=== PATIENT | female | born 1960 | race Caucasian/White ===

== ENCOUNTER 2016-11-29 11:45 | Emergency (ER) | payer SELFPAY ==
[2016-11-29] MEDS ORDERED: Sodium Chloride 0.9% 2.5 ML Syringe FLUSH PRN (12:03)
[2016-11-29] MEDS ORDERED: Sodium Chloride 0.9% 10 ML Syringe FLUSH PRN (12:03)
[2016-11-29] MEDS ORDERED: Ondansetron 4 MG/2 ML SDV IVPUSH ONE (12:04)
[2016-11-29] MEDS ORDERED: Sodium Chloride 0.9% 1,000 ML IV ONE (12:04)
[2016-11-29] MEDS ORDERED: HYDROmorphone 2 MG/ML Syringe IVPUSH ONE (12:04)
--- NOTE | 2016-11-29 12:10 | EDM.PDOC ---
ED HPI GENERAL MEDICAL PROBLEM - General Chief Complaint: Abdominal Pain Stated Complaint: APPENDICITIS Time Seen by Provider: 11/29/16 11:51 - History of Present Illness INITIAL COMMENTS - FREE TEXT/NARRATIVE: HISTORY AND PHYSICAL: History of present illness: The patient is a 56-year-old female with a history of a bilateral tubal ligation and diverticulitis in the past that presents with complaints of 3 weeks of on and off right lower abdominal pain. She states it has been ongoing but on and off in intensity and has been associated with watery stools that are dark in color. She has no history of GI problems other than the diverticulitis. She has no surgical history other than the tubal ligation. She has not had a fever with this and has had no nausea or vomiting. She has no flank pain dysuria frequency or urgency but does state that sometimes after urinating she does not feel that she completely avoids and she has to go again. She does not have a primary care provider and has not seen anyone for these symptoms over the last 3 weeks. She's concerned about appendicitis. Patient has not taken any [id number] medications for these problems. The patient states that the pain intensified last night which is why she came here it is again localized in the right lower abdominal area that is radiating throughout the abdomen now. She does not have any abdominal distention. She has no history of food intolerance and has been eating normally but has had less of an appetite because of the pain. The patient also denies any back pain Review of systems: As per history of present illness and below otherwise all systems reviewed and negative. Past medical history: As per history of present illness and as reviewed below otherwise noncontributory. Surgical history: As per history of present illness and as reviewed below otherwise noncontributory. Social history: No reported history of drug or alcohol abuse. Family history: As per history of present illness and as reviewed below otherwise noncontributory. Physical exam: General: Well-developed well-nourished female who looks uncomfortable in the room but is nontoxic vital signs of a noted by me. HEENT: Atraumatic, normocephalic, pupils reactive, negative for conjunctival pallor or scleral icterus, mucous membranes moist, throat clear, neck supple, nontender, trachea midline. Lungs: Clear to auscultation, breath sounds equal bilaterally, chest nontender. Heart: S1S2, regular, negative for clicks, rubs, or JVD. Abdomen: Soft, nondistended, there is no tympany on percussion and bowel sounds are very hyperactive. She has tenderness throughout the entire exam but is very mild on deep palpation and is more localized to the right lower abdomen area. There are no masses there is no rebound or guarding. Negative for masses or hepatosplenomegaly. Negative for costovertebral tenderness. Pelvis: Stable nontender. Genitourinary: Deferred. Rectal: There is normal tone and no masses, there is scant stool in the vault which is heme-negative. Extremities: Atraumatic, negative for cords or calf pain. Neurovascular unremarkable. Neuro: Awake, alert, oriented. Cranial nerves II through XII unremarkable. Cerebellum unremarkable. Motor and sensory unremarkable throughout. Exam nonfocal. Diagnostics: CBC CMP amylase lipase UA urine culture upright abdominal x-ray CT scan of the abdomen and pelvis Therapeutics: IV fluids Zofran Dilaudid She is aware of all testing results and has not produced any stool while in the ED. Advise her to followup in our clinic and will give her Bentyl for the discomfort I have advised Imodium over the counter use to help stop the diarrhea. I've also advised her on diet changes and hydration. She is also aware of reasons to return to the ED Impression: Episodic abdominal pain and diarrhea stable Definitive disposition and diagnosis as appropriate pending reevaluation and review of above. Right Lower Abdomen Pain Score (Numeric/FACES): 10 - Related Data Allergies Allergy/AdvReac Type Severity Reaction Status Date / Time No Known Allergies Allergy Verified 11/29/16 11:56 Home Meds: Home Meds . [No Known Home Meds] 11/29/16 [History] ED ROS GENERAL - Review of Systems Review Of Systems: ROS reveals no pertinent complaints other than HPI. ED EXAM, GENERAL - Physical Exam Exam: See Below (See dictation) Course - Vital Signs Last Recorded V/S: Last Vital Signs Temp 36.4 C 11/29/16 12:06 Pulse 96 11/29/16 12:06 Resp 18 11/29/16 12:06 BP 128/80 11/29/16 12:06 Pulse Ox 96 11/29/16 12:06 - Orders/Labs/Meds Orders: Active Orders 24 hr Category Date Time Status Communication Order [RC] STAT Care 11/29/16 12:06 Active Abdomen 1V Upright [CR] Stat Exams 11/29/16 12:03 Ordered CULTURE URINE [RM] Stat Lab 11/29/16 12:04 Received Sodium Chloride 0.9% [Saline Flush] Med 11/29/16 12:03 Active 10 ml FLUSH ASDIRECTED PRN Sodium Chloride 0.9% [Saline Flush] Med 11/29/16 12:03 Active 2.5 ml FLUSH ASDIRECTED PRN Saline Lock Insert [OM.PC] Stat Oth 11/29/16 12:03 Ordered Medication Orders Sodium Chloride (Saline Flush) 10 ml FLUSH ASDIRECTED PRN PRN Reason: Keep Vein Open Sodium Chloride (Saline Flush) 2.5 ml FLUSH ASDIRECTED PRN PRN Reason: Keep Vein Open Labs: Laboratory Tests 11/29/16 11/29/16 11/29/16 Range/Units 12:04 12:05 12:05 WBC 7.09 (4.0-11.0) K/uL RBC 4.65 (4.30-5.90) M/uL Hgb 15.0 (12.0-16.0) g/dL Hct 44.3 (36.0-46.0) % MCV 95.3 (80.0-98.0) fL MCH 32.3 H (27.0-32.0) pg MCHC 33.9 (31.0-37.0) g/dL RDW Std Deviation 43.5 (28.0-62.0) fl RDW Coeff of Asher 13 (11.0-15.0) % Plt Count 300 (150-400) K/uL MPV 9.60 (7.40-12.00) fL Neut % (Auto) 56.5 (48.0-80.0) % Lymph % (Auto) 35.8 (16.0-40.0) % [place] % (Auto) 6.6 (0.0-15.0) % Eos % (Auto) 0.8 (0.0-7.0) % Baso % (Auto) 0.3 (0.0-1.5) % Neut # (Auto) 4.0 (1.4-5.7) K/uL Lymph # (Auto) 2.5 H (0.6-2.4) K/uL [place] # (Auto) 0.5 (0.0-0.8) K/uL Eos # (Auto) 0.1 (0.0-0.7) K/uL Baso # (Auto) 0.0 (0.0-0.1) K/uL Nucleated RBC % 0.0 /100WBC Nucleated RBCs # 0 K/uL Lactate (0.20-2.00) mmol/L Sodium 140 (136-146) mmol/L Potassium 3.9 (3.5-5.1) mmol/L Chloride 108 (98-110) mmol/L Carbon Dioxide 20 L (21-31) mmol/L BUN 7 (6.0-23.0) mg/dL Creatinine 0.8 (0.6-1.5) mg/dL Est Cr Clr Drug Dosing 63.41 mL/min Estimated GFR (MDRD) > 60.0 ml/min Glucose 92 (60-110) mg/dL Calcium 9.6 (8.8-10.8) mg/dL Total Bilirubin 0.4 (0.1-1.5) mg/dL AST 22 (5-40) IU/L ALT 15 (8-54) IU/L Alkaline Phosphatase 43 (40-150) Total Protein 7.8 (6.0-8.0) g/dL Albumin 4.7 (3.5-5.0) g/dL Globulin 3.1 (2.0-3.5) g/dL Albumin/Globulin Ratio 1.5 (1.3-2.8) Amylase 58 (10-90) U/L Lipase 22 (7-80) U/L Urine Color YELLOW Urine Appearance CLEAR Urine pH 6.5 (5.0-8.0) Ur Specific [place] 1.010 (1.001-1.035) Urine Protein NEGATIVE (NEGATIVE) mg/dL Urine Glucose (UA) NEGATIVE (NEGATIVE) mg/dL Urine Ketones NEGATIVE (NEGATIVE) mg/dL Urine Occult Blood NEGATIVE (NEGATIVE) Urine Nitrite NEGATIVE (NEGATIVE) Urine Bilirubin NEGATIVE (NEGATIVE) Urine Urobilinogen 0.2 (<2.0) EU/dL Ur Leukocyte Esterase NEGATIVE (NEGATIVE) Urine RBC 0-1 (0-2/HPF) Urine WBC 0-1 (0-5/HPF) Ur Epithelial Cells FEW (NONE-FEW) Urine Bacteria RARE (NEGATIVE) 04/07/17 Range/Units 12:05 WBC (4.0-11.0) K/uL RBC (4.30-5.90) M/uL Hgb (12.0-16.0) g/dL Hct (36.0-46.0) % MCV (80.0-98.0) fL MCH (27.0-32.0) pg MCHC (31.0-37.0) g/dL RDW Std Deviation (28.0-62.0) fl RDW Coeff of Asher (11.0-15.0) % Plt Count (150-400) K/uL MPV (7.40-12.00) fL Neut % (Auto) (48.0-80.0) % Lymph % (Auto) (16.0-40.0) % [place] % (Auto) (0.0-15.0) % Eos % (Auto) (0.0-7.0) % Baso % (Auto) (0.0-1.5) % Neut # (Auto) (1.4-5.7) K/uL Lymph # (Auto) (0.6-2.4) K/uL [place] # (Auto) (0.0-0.8) K/uL Eos # (Auto) (0.0-0.7) K/uL Baso # (Auto) (0.0-0.1) K/uL Nucleated RBC % /100WBC Nucleated RBCs # K/uL Lactate 1.2 (0.20-2.00) mmol/L Sodium (136-146) mmol/L Potassium (3.5-5.1) mmol/L Chloride (98-110) mmol/L Carbon Dioxide (21-31) mmol/L BUN (6.0-23.0) mg/dL Creatinine (0.6-1.5) mg/dL Est Cr Clr Drug Dosing mL/min Estimated GFR (MDRD) ml/min Glucose (60-110) mg/dL Calcium (8.8-10.8) mg/dL Total Bilirubin (0.1-1.5) mg/dL AST (5-40) IU/L ALT (8-54) IU/L Alkaline Phosphatase (40-150) Total Protein (6.0-8.0) g/dL Albumin (3.5-5.0) g/dL Globulin (2.0-3.5) g/dL Albumin/Globulin Ratio (1.3-2.8) Amylase (10-90) U/L Lipase (7-80) U/L Urine Color Urine Appearance Urine pH (5.0-8.0) Ur Specific [place] (1.001-1.035) Urine Protein (NEGATIVE) mg/dL Urine Glucose (UA) (NEGATIVE) mg/dL Urine Ketones (NEGATIVE) mg/dL Urine Occult Blood (NEGATIVE) Urine Nitrite (NEGATIVE) Urine Bilirubin (NEGATIVE) Urine Urobilinogen (<2.0) EU/dL Ur Leukocyte Esterase (NEGATIVE) Urine RBC (0-2/HPF) Urine WBC (0-5/HPF) Ur Epithelial Cells (NONE-FEW) Urine Bacteria (NEGATIVE) Meds: Medications Generic Name Dose Route Start Last Admin Trade Name Freq PRN Reason Stop Dose Admin Sodium Chloride 10 ml 11/29/16 12:03 Saline Flush FLUSH ASDIRECTED PRN Keep Vein Open Sodium Chloride 2.5 ml 11/29/16 12:03 Saline Flush FLUSH ASDIRECTED PRN Keep Vein Open Discontinued Medications Generic Name Dose Route Start Last Admin Trade Name Freq PRN Reason Stop Dose Admin Hydromorphone HCl 0.5 mg 11/29/16 12:04 11/29/16 12:45 Dilaudid IVPUSH 11/29/16 12:05 0.5 mg ONETIME ONE Administration Sodium Chloride 1,000 mls @ 999 mls/hr 11/29/16 12:04 11/29/16 12:40 Normal Saline IV 11/29/16 13:04 999 mls/hr STAT ONE Administration Iopamidol 100 ml 11/29/16 13:44 11/29/16 13:45 Isovue-370 (76%) IVPUSH 11/29/16 13:45 100 ml ONETIME STA Administration Ondansetron HCl 4 mg 11/29/16 12:04 11/29/16 12:40 Zofran IVPUSH 11/29/16 12:05 4 mg ONETIME ONE Administration Departure - Departure Time of Disposition: 14:24 Disposition: Home, Self-Care 01 Condition: good Clinical Impression: Abdominal pain Qualifiers: Abdominal location: right lower quadrant Qualified Code(s): R10.31 - Right lower quadrant pain Diarrhea Qualifiers: Diarrhea type: unspecified type Qualified Code(s): R19.7 - Diarrhea, unspecified Forms: ED Department Discharge Additional Instructions: The following information is given to patients seen in the emergency department who are being discharged to home. This information is to outline your options for follow-up care. We provide all patients seen in our emergency department with a follow-up referral. The need for follow-up, as well as the timing and circumstances, are variable depending upon the specifics of your emergency department visit. If you don't have a primary care physician on staff, we will provide you with a referral. We always advise you to contact your personal physician following an emergency department visit to inform them of the circumstance of the visit and for follow-up with them and/or the need for any referrals to a consulting specialist. The emergency department will also refer you to a specialist when appropriate. This referral assures that you have the opportunity for followup care with a specialist. All of these measure are taken in an effort to provide you with optimal care, which includes your followup. Under all circumstances we always encourage you to contact your private physician who remains a resource for coordinating your care. When calling for followup care, please make the office aware that this follow-up is from your recent emergency room visit. If for any reason you are refused follow-up, please contact the [facility] emergency department at and ask to speak to the emergency department charge nurse. [facility] Primary care- Internal Medicine and Family [facility] [address] [place] [id number] [facility] Specialty Care-General Surgery Professional Building [address] [place] [id number] Please connect with our clinic for further care and evaluation and also schedule followup in neurosurgery clinic for colonoscopy as indicated. Please use [id number] Imodium to try to decrease the diarrhea and use Bentyl prescribed to you for her cramping and discomfort. Push hydration and avoid caffeinated products and eat bland diet. Return to ER as needed and as discussed - My Orders Last 24 Hours: My Active Orders 11/29/16 12:03 Abdomen 1V Upright [CR] Stat Sodium Chloride 0.9% [Saline Flush] 10 ml FLUSH ASDIRECTED PRN Sodium Chloride 0.9% [Saline Flush] 2.5 ml FLUSH ASDIRECTED PRN Saline Lock Insert [OM.PC] Stat 11/29/16 12:04 CULTURE URINE [RM] Stat 11/29/16 12:06 Communication Order [RC] STAT - Assessment/Plan Last 24 Hours: My Active Orders 11/29/16 12:03 Abdomen 1V Upright [CR] Stat Sodium Chloride 0.9% [Saline Flush] 10 ml FLUSH ASDIRECTED PRN Sodium Chloride 0.9% [Saline Flush] 2.5 ml FLUSH ASDIRECTED PRN Saline Lock Insert [OM.PC] Stat 11/29/16 12:04 CULTURE URINE [RM] Stat 11/29/16 12:06 Communication Order [RC] STAT
[2016-11-29 13:04] LABS: CHLORIDE,CL 108 mmol/L (98-110); SODIUM,NA 140 mmol/L (136-146)
[2016-11-29] MEDS ORDERED: Iopamidol 755 Mg/ML 100 ML Bottle IVPUSH STA (13:44)
--- NOTE | 2016-11-29 14:15 | CT ---
CT of the abdomen and pelvis with and without contrast. HISTORY: Pain TECHNIQUE: Axial CT images were obtained of the abdomen and pelvis before and following administrati on of 100 mL of Isovue-370 in the right hand without complication. Coronal and sagittal reconstructi ons obtained. FINDINGS: The lung bases are clear, no pleural effusion. There is mild focal fatty infiltration near the falciform ligament. The gallbladder, adrenal glands, and pancreas appear normal. The spleen is unremarkable. No bulky retroperitoneal lymphadenopathy or abdominal ascites. The kidneys enhance and function symmetrically without evidence of obstructive u ropathy. No abnormal calcifications noted within the kidneys or along the courses of the ureters kumar aterally. The large and small bowel are normal in caliber without evidence of obstruction. The appendix appear s normal. No bulky pelvic lymphadenopathy or free pelvic fluid. The urinary bladder appears normal. No suspicious osseous abnormality is identified. IMPRESSION: 1. No acute findings demonstrated within the abdomen or pelvis.
[2016-11-29 14:26] VITALS: BP 116/72
--- NOTE | 2016-11-29 15:00 | CR ---
EXAMINATION: Abdomen HISTORY: Pain COMPARISON: None TECHNIQUE: Upright view FINDINGS/IMPRESSION: The lung bases are clear, no free air under the diaphragm. There is a nonobstru ctive bowel gas pattern. No organomegaly or abnormal calcifications.
== END 2016-11-29 14:35 | disposition home or self-care (01) ==
LOC: MW.ED 11:45
DX: R19.7 Diarrhea, unspecified (principal); R10.31 Right lower quadrant pain
CPT/HCPCS: 74000; 74178; 80053; 81001; 82150; 83605; 83690; 85025; 87086; 96361; 96374; 96375; 99284; J1170; J2405; J7040; Q9967

== ENCOUNTER 2018-05-23 17:41 | Observation (INO) | payer MEDICAID ==
[2018-05-23] MEDS ORDERED: Sodium Chloride 0.9% 10 ML Syringe FLUSH PRN (19:19)
[2018-05-23] MEDS ORDERED: Acetaminophen 325 MG Tab PO ONE (19:19)
[2018-05-23] MEDS ORDERED: Sodium Chloride 0.9% 1,000 ML IV ONE (19:19)
[2018-05-23] MEDS ORDERED: Sodium Chloride 0.9% 2.5 ML Syringe FLUSH PRN (19:19)
--- NOTE | 2018-05-23 19:25 | EDM.PDOC ---
ED HPI GENERAL MEDICAL PROBLEM - General Chief Complaint: General Stated Complaint: HAS LOST 15LBS IN 5 DAYS AND HURTS ALL OVER Time Seen by Provider: 05/23/18 19:23 Source of Information: Reports: Patient History Limitations: Reports: No Limitations - History of Present Illness INITIAL COMMENTS - FREE TEXT/NARRATIVE: HISTORY AND PHYSICAL: History of present illness: Patient is a 57-year-old female here with complaints of feeling sick for 2 weeks. She states she's had fevers and chills as well as a cough. She complains of vomiting and diarrhea and has not been able to keep anything down which is resulted in the 15-20 pound weight loss. She denies any chest pain, shortness of breath, abdominal pain, hematemesis, melena, hematochezia. She is taking Advil for her symptoms. Patient smokes half a pack a day. Review of systems: As per history of present illness and below otherwise all systems reviewed and negative. Past medical history: As per history of present illness and as reviewed below otherwise noncontributory. Surgical history: As per history of present illness and as reviewed below otherwise noncontributory. Social history: No reported history of drug or alcohol abuse. Family history: As per history of present illness and as reviewed below otherwise noncontributory. Physical exam: General: Patient sitting comfortably in no acute distress and nontoxic appearing HEENT: Atraumatic, normocephalic, pupils reactive, negative for conjunctival pallor or scleral icterus, mucous membranes moist, throat clear, neck supple, nontender, trachea midline. No meningeal signs. Lungs: Rhonchi at the lung bases bilaterally, chest nontender. Heart: S1S2, regular, negative for clicks, rubs, or overt murmur. Abdomen: Soft, nondistended, nontender. Negative for masses or hepatosplenomegaly. Negative for costovertebral tenderness. Pelvis: Stable nontender. Genitourinary: Deferred. Rectal: Deferred. Extremities: Atraumatic, negative for cords or calf pain. Neurovascular unremarkable. Neuro: Awake, alert, oriented. Cranial nerves II through XII unremarkable. Cerebellum unremarkable. Motor and sensory unremarkable throughout. Exam nonfocal. Notes: Diagnostics: CXR, CBC, CMP, UA, Blood culture x 2 Therapeutics: 1L NS IV Levaquin IV Prescriptions: Impression: Pneumonia, leukocytosis Plan: Discussed with Dr. Shore, patient will be admitted to observation on IV antibiotics. Definitive disposition and diagnosis as appropriate pending reevaluation and review of above. Generalized Pain Score (Numeric/FACES): 10 - Related Data Allergies Allergy/AdvReac Type Severity Reaction Status Date / Time No Known Allergies Allergy Verified 05/23/18 19:01 Home Meds: Home Meds . [No Known Home Meds] 11/29/16 [History] Past Medical History HEENT History: Reports: Impaired Vision Other HEENT History: reading glasses Gastrointestinal History: Reports: Diverticulosis [employer] History: Reports: Other [employer] History: tubal ligation Neurological History: Reports: Concussion, Migraines, MS - Infectious Disease History Infectious Disease History: Reports: Chicken Pox Social & Family History - Family History Family Medical History: Noncontributory - Tobacco Use Smoking Status *Q: Current Every Day Smoker Years of Tobacco use: 20 Packs/Tins Daily: 0.5 - Caffeine Use Caffeine Use: Reports: Coffee, Soda - Recreational Drug Use Recreational Drug Use: No ED ROS GENERAL - Review of Systems Review Of Systems: ROS reveals no pertinent complaints other than HPI. ED EXAM, GENERAL - Physical Exam Exam: See Below (See dictation) Course - Vital Signs Last Recorded V/S: Last Vital Signs Temp 38.4 C H 05/23/18 18:55 Pulse 116 H 05/23/18 18:55 Resp 18 05/23/18 18:55 BP 105/63 05/23/18 18:55 Pulse Ox 94 L 05/23/18 18:55 - Orders/Labs/Meds Orders: Active Orders 24 hr Category Date Time Status Chest 1V Frontal [CR] Stat Exams 05/23/18 20:40 Taken CULTURE BLOOD [BC] Stat Lab 05/23/18 19:29 Received CULTURE BLOOD [BC] Stat Lab 05/23/18 19:38 Received CULTURE URINE [RM] Stat Lab 05/23/18 20:35 Received Sodium Chloride 0.9% [Saline Flush] Med 05/23/18 19:19 Active 10 ml FLUSH ASDIRECTED PRN Sodium Chloride 0.9% [Saline Flush] Med 05/23/18 19:19 Active 2.5 ml FLUSH ASDIRECTED PRN Blood Culture x2 Reflex Set [OM.PC] Stat Oth 05/23/18 19:19 Ordered Saline Lock Insert [OM.PC] Stat Oth 05/23/18 19:18 Ordered Medication Orders Sodium Chloride (Saline Flush) 10 ml FLUSH ASDIRECTED PRN PRN Reason: Keep Vein Open Last Admin: 05/23/18 19:37 Dose: 10 ml Sodium Chloride (Saline Flush) 2.5 ml FLUSH ASDIRECTED PRN PRN Reason: Keep Vein Open Last Admin: 05/23/18 19:37 Dose: 2.5 ml Labs: Laboratory Tests 05/23/18 05/23/18 05/23/18 Range/Units 19:: 20:35 WBC 16.14 H (4.0-11.0) K/uL RBC 4.08 L (4.30-5.90) M/uL Hgb 13.2 (12.0-16.0) g/dL Hct 38.2 (36.0-46.0) % MCV 93.6 (80.0-98.0) fL MCH 32.4 H (27.0-32.0) pg MCHC 34.6 (31.0-37.0) g/dL RDW Std Deviation 42.5 (28.0-62.0) fl RDW Coeff of Asher 13 (11.0-15.0) % Plt Count 300 (150-400) K/uL MPV 9.50 (7.40-12.00) fL Neut % (Auto) 85.8 H (48.0-80.0) % Lymph % (Auto) 6.6 L (16.0-40.0) % [place] % (Auto) 7.4 (0.0-15.0) % Eos % (Auto) 0.1 (0.0-7.0) % Baso % (Auto) 0.1 (0.0-1.5) % Neut # (Auto) 13.9 H (1.4-5.7) K/uL Lymph # (Auto) 1.1 (0.6-2.4) K/uL [place] # (Auto) 1.2 H (0.0-0.8) K/uL Eos # (Auto) 0.0 (0.0-0.7) K/uL Baso # (Auto) 0.0 (0.0-0.1) K/uL Nucleated RBC % 0.0 /100WBC Nucleated RBCs # 0 K/uL Sodium 131 L (136-145) mmol/L Potassium 3.7 (3.5-5.1) mmol/L Chloride 98 (98-107) mmol/L Carbon Dioxide 23.3 (21.0-32.0) mmol/L BUN 6 L (7.0-18.0) mg/dL Creatinine 0.8 (0.6-1.0) mg/dL Est Cr Clr Drug Dosing 62.63 mL/min Estimated GFR (MDRD) > 60.0 ml/min Glucose 118 H (74-106) mg/dL Calcium 8.8 (8.5-10.1) mg/dL Total Bilirubin 0.7 (0.2-1.0) mg/dL AST 48 H (15-37) IU/L ALT 39 (14-63) IU/L Alkaline Phosphatase 49 (46-116) U/L Total Protein 7.4 (6.4-8.2) g/dL Albumin 3.5 (3.4-5.0) g/dL Globulin 3.9 H (2.0-3.5) g/dL Albumin/Globulin Ratio 0.9 L (1.3-2.8) Urine Color DARK YELLOW Urine Appearance HAZY Urine pH 7.0 (5.0-8.0) Ur Specific [place] 1.010 (1.001-1.035) Urine Protein NEGATIVE (NEGATIVE) mg/dL Urine Glucose (UA) NEGATIVE (NEGATIVE) mg/dL Urine Ketones 15 H (NEGATIVE) mg/dL Urine Occult Blood NEGATIVE (NEGATIVE) Urine Nitrite NEGATIVE (NEGATIVE) Urine Bilirubin NEGATIVE (NEGATIVE) Urine Urobilinogen 1.0 (<2.0) EU/dL Ur Leukocyte Esterase NEGATIVE (NEGATIVE) Urine RBC 0-2 (0-2/HPF) Urine WBC 0-2 (0-5/HPF) Ur Epithelial Cells FEW (NONE-FEW) Urine Bacteria FEW (NEGATIVE) Meds: Medications Generic Name Dose Route Start Last Admin Trade Name Freq PRN Reason Stop Dose Admin Sodium Chloride 10 ml 05/23/18 19:19 05/23/18 19:37 Saline Flush FLUSH 10 ml ASDIRECTED PRN Administration Keep Vein Open Sodium Chloride 2.5 ml 05/23/18 19:19 05/23/18 19:37 Saline Flush FLUSH 2.5 ml ASDIRECTED PRN Administration Keep Vein Open Discontinued Medications Generic Name Dose Route Start Last Admin Trade Name William PRN Reason Stop Dose Admin Acetaminophen 650 mg 05/23/18 19:19 05/23/18 19:36 Tylenol PO 05/23/18 19:20 650 mg NOW ONE Administration Sodium Chloride 1,000 mls @ 999 mls/hr 05/23/18 19:19 05/23/18 19:36 Normal Saline IV 05/23/18 20:19 999 mls/hr STAT ONE Administration Departure - Departure Time of Disposition: 22:45 Disposition: Refer to Observation Condition: Good Clinical Impression: Pneumonia - Discharge Information Referrals: PCP,None [Primary Care Provider] - Forms: ED Department Discharge - My Orders Last 24 Hours: My Active Orders 05/23/18 19:18 Saline Lock Insert [OM.PC] Stat 05/23/18 19:19 Sodium Chloride 0.9% [Saline Flush] 10 ml FLUSH ASDIRECTED PRN Sodium Chloride 0.9% [Saline Flush] 2.5 ml FLUSH ASDIRECTED PRN Blood Culture x2 Reflex Set [OM.PC] Stat 05/23/18 19:29 CULTURE BLOOD [BC] Stat 05/23/18 19:38 CULTURE BLOOD [BC] Stat 05/23/18 20:35 CULTURE URINE [RM] Stat 05/23/18 20:40 Chest 1V Frontal [CR] Stat - Assessment/Plan Last 24 Hours: My Active Orders 05/23/18 19:18 Saline Lock Insert [OM.PC] Stat 05/23/18 19:19 Sodium Chloride 0.9% [Saline Flush] 10 ml FLUSH ASDIRECTED PRN Sodium Chloride 0.9% [Saline Flush] 2.5 ml FLUSH ASDIRECTED PRN Blood Culture x2 Reflex Set [OM.PC] Stat 05/23/18 19:29 CULTURE BLOOD [BC] Stat 05/23/18 19:38 CULTURE BLOOD [BC] Stat 05/23/18 20:35 CULTURE URINE [RM] Stat 05/23/18 20:40 Chest 1V Frontal [CR] Stat
[2018-05-23 20:05] LABS: CHLORIDE,CL 98 mmol/L (98-107); SODIUM,NA 131 mmol/L (136-145)
[2018-05-23] MEDS ORDERED: Levofloxacin/Dextrose 5%-Water 750 MG in Premix Bag 1 BAG IV ONE (22:44)
[2018-05-23] MEDS ORDERED: Ondansetron 4 MG Tab.DIS PO PRN (23:28)
[2018-05-23] MEDS ORDERED: Nicotine 14 MG/24 Hr Patch TRDERM ONE (23:45)
[2018-05-23] MEDS: Sodium Chloride 0.9% 1,000 ML IV SCH (23:46)
[2018-05-23] MEDS: Nicotine 14 MG/24 Hr Patch TRDERM SCH (23:46)
[2018-05-24] MEDS: Acetaminophen 325 MG Tab PO PRN ×2 (03:02→16:45)
[2018-05-24 06:31] LABS: CHLORIDE,CL 104 mmol/L (98-107); SODIUM,NA 135 mmol/L (136-145)
[2018-05-24] MEDS: Nicotine 14 MG/24 Hr Patch TRDERM SCH (09:39)
[2018-05-24] MEDS: Sodium Chloride 0.9% 1,000 ML IV SCH ×2 (09:41→22:40)
[2018-05-24] MEDS ORDERED: Magnesium Sulfate/Water 2 GM in Premix Bag 1 BAG IV ONE (10:26)
--- NOTE | 2018-05-24 10:57 | PCM.HP ---
<Matthew Buchananesto - Last Filed: 05/24/18 11:02> H&P History of Present Illness - General Date of Service: 05/24/18 Admit Problem/Dx: Admission Diagnosis/Problem Admission Diagnosis/Problem Pneumonia - History of Present Illness Initial Comments - Free Text/Narative: Annie Klein is a 58 y/o female with history of multiple sclerosis who presented to the ER complaining of nausea/vomiting for the past 2 weeks. She states that initially she started having flu like symptoms and since then she has been feeling nauseous, vomiting with poor oral intake. She lives in [place]. She has been here for 2 weeks since she came to visit her family in [place] from [place]. Denies any recent sick contacts. No one else is sick at home. Endorses pelvic pain. No diarrhea or dysuria. Denies any illicit drug use. Denies chest pain, dyspnea, dysuria, diarrhea. No new joint pain or rashes. Generalized Pain Score (Numeric/FACES): 10 - Related Data Allergies/Adverse Reactions: Allergies Allergy/AdvReac Type Severity Reaction Status Date / Time No Known Allergies Allergy Verified 05/23/18 19:01 Home Medications: Home Meds Cholecalciferol (Vitamin D3) [Vitamin D] 5,000 mg PO DAILY 05/24/18 [History] Vitamin B Complex 1 each PO DAILY 05/24/18 [History] Past Medical History HEENT History: Reports: Impaired Vision Other HEENT History: reading glasses Gastrointestinal History: Reports: Diverticulosis RN SUPPLEMENTAL History: Reports: Other OB/BYN History: tubal ligation Neurological History: Reports: Concussion, Migraines, MS - Infectious Disease History Infectious Disease History: Reports: Chicken Pox, Measles, Mumps, Rubella Social & Family History - Family History Family Medical History: Noncontributory - Tobacco Use Smoking Status *Q: Current Every Day Smoker Years of Tobacco use: 20 Packs/Tins Daily: 1 Used Tobacco, but Quit: No Tobacco Use Comment: Client wants to quit smoking Second Hand Smoke Exposure: Yes - Caffeine Use Caffeine Use: Reports: Coffee - Recreational Drug Use Recreational Drug Use: Yes Drug Use in Last 12 Months: Yes Recreational Drug Type: Reports: Other (see below) Other Recreational Drug Type: uses [employer] for her MS Recreational Drug Use Frequency: Daily H&P Review of Systems - Review of Systems: Review Of Systems: ROS reveals no pertinent complaints other than HPI. Exam - Exam Exam: See Below - Vital Signs Vital Signs: Last Vital Signs Temp 36.8 C 05/24/18 08:00 Pulse 92 05/24/18 08:00 Resp 18 05/24/18 08:00 BP 104/79 05/24/18 08:00 Pulse Ox 95 05/24/18 08:00 Weight: 57.969 kg - Exam General: Alert, Oriented, Cooperative HEENT: Conjunctiva Clear, Posterior Pharynx Clear, Pupils Equal, Pupils Reactive , Other (Dry mucous membranes.) Lungs: Clear to Auscultation, Normal Respiratory Effort Cardiovascular: Regular Rate, Regular Rhythm GI/Abdominal Exam: Soft, Non-Tender, Distended. No: Guarding, Rebound Extremities: Normal Inspection, Normal Range of Motion, Non-Tender, No Pedal Edema Skin: Warm, Dry Neurological: Cranial Nerves Intact Psychiatric: Alert, Normal Affect - Patient Data Lab Results Last 24 hrs: Laboratory Results - last 24 hr 05/23/18 05/23/18 05/23/18 Range/Units 19:29 19:29 20:35 WBC 16.14 H (4.0-11.0) K/uL RBC 4.08 L (4.30-5.90) M/uL Hgb 13.2 (12.0-16.0) g/dL Hct 38.2 (36.0-46.0) % MCV 93.6 (80.0-98.0) fL MCH 32.4 H (27.0-32.0) pg MCHC 34.6 (31.0-37.0) g/dL RDW Std Deviation 42.5 (28.0-62.0) fl RDW Coeff of Asher 13 (11.0-15.0) % Plt Count 300 (150-400) K/uL MPV 9.50 (7.40-12.00) fL Neut % (Auto) 85.8 H (48.0-80.0) % Lymph % (Auto) 6.6 L (16.0-40.0) % [place] % (Auto) 7.4 (0.0-15.0) % Eos % (Auto) 0.1 (0.0-7.0) % Baso % (Auto) 0.1 (0.0-1.5) % Neut # (Auto) 13.9 H (1.4-5.7) K/uL Lymph # (Auto) 1.1 (0.6-2.4) K/uL [place] # (Auto) 1.2 H (0.0-0.8) K/uL Eos # (Auto) 0.0 (0.0-0.7) K/uL Baso # (Auto) 0.0 (0.0-0.1) K/uL Nucleated RBC % 0.0 /100WBC Nucleated RBCs # 0 K/uL Sodium 131 L (136-145) mmol/L Potassium 3.7 (3.5-5.1) mmol/L Chloride 98 (98-107) mmol/L Carbon Dioxide 23.3 (21.0-32.0) mmol/L BUN 6 L (7.0-18.0) mg/dL Creatinine 0.8 (0.6-1.0) mg/dL Est Cr Clr Drug Dosing 62.63 mL/min Estimated GFR (MDRD) > 60.0 ml/min Glucose 118 H (74-106) mg/dL Calcium 8.8 (8.5-10.1) mg/dL Phosphorus (2.6-4.7) mg/dL Magnesium (1.8-2.4) mg/dL Total Bilirubin 0.7 (0.2-1.0) mg/dL AST 48 H (15-37) IU/L ALT 39 (14-63) IU/L Alkaline Phosphatase 49 (46-116) U/L Total Protein 7.4 (6.4-8.2) g/dL Albumin 3.5 (3.4-5.0) g/dL Globulin 3.9 H (2.0-3.5) g/dL Albumin/Globulin Ratio 0.9 L (1.3-2.8) Urine Color DARK YELLOW Urine Appearance HAZY Urine pH 7.0 (5.0-8.0) Ur Specific Wolf 1.010 (1.001-1.035) Urine Protein NEGATIVE (NEGATIVE) mg/dL Urine Glucose (UA) NEGATIVE (NEGATIVE) mg/dL Urine Ketones 15 H (NEGATIVE) mg/dL Urine Occult Blood NEGATIVE (NEGATIVE) Urine Nitrite NEGATIVE (NEGATIVE) Urine Bilirubin NEGATIVE (NEGATIVE) Urine Urobilinogen 1.0 (<2.0) EU/dL Ur Leukocyte Esterase NEGATIVE (NEGATIVE) Urine RBC 0-2 (0-2/HPF) Urine WBC 0-2 (0-5/HPF) Ur Epithelial Cells FEW (NONE-FEW) Urine Bacteria FEW (NEGATIVE) 05/24/18 05/24/18 Range/Units 05:38 05:38 WBC 15.68 H (4.0-11.0) K/uL RBC 3.52 L (4.30-5.90) M/uL Hgb 11.2 L (12.0-16.0) g/dL Hct 33.1 L (36.0-46.0) % MCV 94.0 (80.0-98.0) fL MCH 31.8 (27.0-32.0) pg MCHC 33.8 (31.0-37.0) g/dL RDW Std Deviation 42.9 (28.0-62.0) fl RDW Coeff of Asher 13 (11.0-15.0) % Plt Count 270 (150-400) K/uL MPV 9.50 (7.40-12.00) fL Neut % (Auto) 84.3 H (48.0-80.0) % Lymph % (Auto) 9.3 L (16.0-40.0) % [place] % (Auto) 6.3 (0.0-15.0) % Eos % (Auto) 0.0 (0.0-7.0) % Baso % (Auto) 0.1 (0.0-1.5) % Neut # (Auto) 13.2 H (1.4-5.7) K/uL Lymph # (Auto) 1.5 (0.6-2.4) K/uL [place] # (Auto) 1.0 H (0.0-0.8) K/uL Eos # (Auto) 0.0 (0.0-0.7) K/uL Baso # (Auto) 0.0 (0.0-0.1) K/uL Nucleated RBC % 0.0 /100WBC Nucleated RBCs # 0 K/uL Sodium 135 L (136-145) mmol/L Potassium 3.7 (3.5-5.1) mmol/L Chloride 104 (98-107) mmol/L Carbon Dioxide 23.1 (21.0-32.0) mmol/L BUN 5 L (7.0-18.0) mg/dL Creatinine 0.7 (0.6-1.0) mg/dL Est Cr Clr Drug Dosing 70.70 mL/min Estimated GFR (MDRD) > 60.0 ml/min Glucose 118 H (74-106) mg/dL Calcium 8.2 L (8.5-10.1) mg/dL Phosphorus 3.3 (2.6-4.7) mg/dL Magnesium 1.7 L (1.8-2.4) mg/dL Total Bilirubin 1.0 (0.2-1.0) mg/dL AST 63 H (15-37) IU/L ALT 54 (14-63) IU/L Alkaline Phosphatase 43 L (46-116) U/L Total Protein 6.2 L (6.4-8.2) g/dL Albumin 2.8 L (3.4-5.0) g/dL Globulin 3.4 (2.0-3.5) g/dL Albumin/Globulin Ratio 0.8 L (1.3-2.8) Urine Color Urine Appearance Urine pH (5.0-8.0) Ur Specific Wolf (1.001-1.035) Urine Protein (NEGATIVE) mg/dL Urine Glucose (UA) (NEGATIVE) mg/dL Urine Ketones (NEGATIVE) mg/dL Urine Occult Blood (NEGATIVE) Urine Nitrite (NEGATIVE) Urine Bilirubin (NEGATIVE) Urine Urobilinogen (<2.0) EU/dL Ur Leukocyte Esterase (NEGATIVE) Urine RBC (0-2/HPF) Urine WBC (0-5/HPF) Ur Epithelial Cells (NONE-FEW) Urine Bacteria (NEGATIVE) Result Diagrams: 05/24/18 05:38 05/24/18 05:38 Problem List Initiated/Reviewed/Updated: Yes Orders Last 24hrs: Active Orders 24 hr Category Date Time Status Admission Status [Patient Status] [ADT] Stat ADT 05/23/18 22:45 Active Regular Diet [DIET] Diet 05/24/18 Breakfast Active Chest 1V Frontal [CR] Stat Exams 05/23/18 20:40 Taken CULTURE BLOOD [BC] Stat Lab 05/23/18 19:29 Received CULTURE BLOOD [BC] Stat Lab 05/23/18 19:38 Received CULTURE URINE [RM] Stat Lab 05/23/18 20:35 Received DRUG SCREEN, URINE [URCHEM] Routine Lab 05/24/18 10:50 Ordered Acetaminophen [Tylenol] Med 05/23/18 23:27 Active 650 mg PO Q4H PRN Magnesium Sulfate/Water [Magnesium Sulfate 2 GM in Med 05/24/18 10:26 Active Water 50 ML] 2 gm Premix Bag 1 bag IV ONETIME Nicotine [Habitrol] Med 05/23/18 23:45 Active 14 mg TRDERM DAILY Ondansetron [Zofran ODT] Med 05/23/18 23:28 Active 4 mg PO Q6H PRN Sodium Chloride 0.9% [Normal Saline] 1,000 ml Med 05/23/18 23:30 Active IV ASDIRECTED Sodium Chloride 0.9% [Saline Flush] Med 05/23/18 19:19 Active 10 ml FLUSH ASDIRECTED PRN Sodium Chloride 0.9% [Saline Flush] Med 05/23/18 19:19 Active 2.5 ml FLUSH ASDIRECTED PRN Temazepam [Restoril] Med 05/24/18 21:00 Active 15 mg PO BEDTIME Blood Culture x2 Reflex Set [OM.PC] Stat Oth 05/23/18 19:19 Ordered Saline Lock Insert [OM.PC] Stat Oth 05/23/18 19:18 Ordered Medication Orders Acetaminophen (Tylenol) 650 mg PO Q4H PRN PRN Reason: Pain Last Admin: 05/24/18 03:02 Dose: 650 mg Sodium Chloride (Normal Saline) 1,000 mls @ 100 mls/hr IV ASDIRECTED [facility] Last Admin: 05/24/18 09:41 Dose: 100 mls/hr Infusion: 05/24/18 09:41 Dose: 100 mls/hr Admin: 05/23/18 23:46 Dose: 100 mls/hr Magnesium Sulfate 2 gm/ Premix 50 mls @ 25 mls/hr IV ONETIME ONE Stop: 05/24/18 12:25 Nicotine (Habitrol) 14 mg TRDERM DAILY [facility] Last Admin: 05/24/18 09:39 Dose: 14 mg Admin: 05/23/18 23:46 Dose: 14 mg Ondansetron HCl (Zofran Odt) 4 mg PO Q6H PRN PRN Reason: Nausea/Vomiting Last Admin: 05/24/18 03:02 Dose: 4 mg Sodium Chloride (Saline Flush) 10 ml FLUSH ASDIRECTED PRN PRN Reason: Keep Vein Open Last Admin: 05/23/18 19:37 Dose: 10 ml Sodium Chloride (Saline Flush) 2.5 ml FLUSH ASDIRECTED PRN PRN Reason: Keep Vein Open Last Admin: 05/23/18 19:37 Dose: 2.5 ml Temazepam (Restoril) 15 mg PO BEDTIME [facility] Assessment/Plan Comment:: 1. Nausea/vomiting- Uncertain etiology. Will order KUB. Ordered urine drug screen. Clear liquid diet. IV fluid with NS. Advance as tolerated. Zofran PRN. 2. Hypomagnesemia- replaced with Mg Sulfate IV 2g Once. 3. Leukocytosis- I suspect it may be due to dehydration. No fevers. Will continue to monitor. Dispo: 1-2 days <Jarek Shore - Last Filed: 05/24/18 16:03> H&P History of Present Illness - General Admit Problem/Dx: Admission Diagnosis/Problem Admission Diagnosis/Problem Pneumonia I have seen and examined the patient independently of nurses medical assistants phlebotomists. The patient is a 58-year-old lady who presented to the emergency room with a complaint of nausea vomiting and diarrhea over the past 2 weeks. Patient also says that she has been feeling very weak and fatigued. She feels somewhat dehydrated. The patient is visiting with daughter from [place]. The patient has a history of multiple sclerosis and she has been using CBD oil to help with this. The patient in the emergency department had been noted to have a hazy vague retrocardial opacity and she has been admitted for concern for pneumonia. The patient will be continued on the IV antibiotics. I suspect with resolution of the patient's symptoms as well as return of her white cell count to normal she should be appropriate for discharge. Also noted that the patient was hyponatremic and this is improved with fluid resuscitation. I have reviewed and agree with the resident's assessment and plan of care. Exam - Vital Signs Vital Signs: Last Vital Signs Temp 37.3 C 05/24/18 13:05 Pulse 100 05/24/18 13:05 Resp 18 05/24/18 13:05 BP 96/60 05/24/18 13:05 Pulse Ox 94 L 05/24/18 13:05 - Patient Data Lab Results Last 24 hrs: Laboratory Results - last 24 hr 05/23/18 05/23/18 05/23/18 Range/Units 19:29 19:29 20:35 WBC 16.14 H (4.0-11.0) K/uL RBC 4.08 L (4.30-5.90) M/uL Hgb 13.2 (12.0-16.0) g/dL Hct 38.2 (36.0-46.0) % MCV 93.6 (80.0-98.0) fL MCH 32.4 H (27.0-32.0) pg MCHC 34.6 (31.0-37.0) g/dL RDW Std Deviation 42.5 (28.0-62.0) fl RDW Coeff of Asher 13 (11.0-15.0) % Plt Count 300 (150-400) K/uL MPV 9.50 (7.40-12.00) fL Neut % (Auto) 85.8 H (48.0-80.0) % Lymph % (Auto) 6.6 L (16.0-40.0) % [place] % (Auto) 7.4 (0.0-15.0) % Eos % (Auto) 0.1 (0.0-7.0) % Baso % (Auto) 0.1 (0.0-1.5) % Neut # (Auto) 13.9 H (1.4-5.7) K/uL Lymph # (Auto) 1.1 (0.6-2.4) K/uL [place] # (Auto) 1.2 H (0.0-0.8) K/uL Eos # (Auto) 0.0 (0.0-0.7) K/uL Baso # (Auto) 0.0 (0.0-0.1) K/uL Nucleated RBC % 0.0 /100WBC Nucleated RBCs # 0 K/uL Sodium 131 L (136-145) mmol/L Potassium 3.7 (3.5-5.1) mmol/L Chloride 98 (98-107) mmol/L Carbon Dioxide 23.3 (21.0-32.0) mmol/L BUN 6 L (7.0-18.0) mg/dL Creatinine 0.8 (0.6-1.0) mg/dL Est Cr Clr Drug Dosing 62.63 mL/min Estimated GFR (MDRD) > 60.0 ml/min Glucose 118 H (74-106) mg/dL Calcium 8.8 (8.5-10.1) mg/dL Phosphorus (2.6-4.7) mg/dL Magnesium (1.8-2.4) mg/dL Total Bilirubin 0.7 (0.2-1.0) mg/dL AST 48 H (15-37) IU/L ALT 39 (14-63) IU/L Alkaline Phosphatase 49 (46-116) U/L Total Protein 7.4 (6.4-8.2) g/dL Albumin 3.5 (3.4-5.0) g/dL Globulin 3.9 H (2.0-3.5) g/dL Albumin/Globulin Ratio 0.9 L (1.3-2.8) Urine Color DARK YELLOW Urine Appearance HAZY Urine pH 7.0 (5.0-8.0) Ur Specific Wolf 1.010 (1.001-1.035) Urine Protein NEGATIVE (NEGATIVE) mg/dL Urine Glucose (UA) NEGATIVE (NEGATIVE) mg/dL Urine Ketones 15 H (NEGATIVE) mg/dL Urine Occult Blood NEGATIVE (NEGATIVE) Urine Nitrite NEGATIVE (NEGATIVE) Urine Bilirubin NEGATIVE (NEGATIVE) Urine Urobilinogen 1.0 (<2.0) EU/dL Ur Leukocyte Esterase NEGATIVE (NEGATIVE) Urine RBC 0-2 (0-2/HPF) Urine WBC 0-2 (0-5/HPF) Ur Epithelial Cells FEW (NONE-FEW) Urine Bacteria FEW (NEGATIVE) Urine Opiates Screen (NEGATIVE) Ur Oxycodone Screen (NEGATIVE) Urine Methadone Screen (NEGATIVE) Ur Barbiturates Screen (NEGATIVE) Ur Phencyclidine Scrn (NEGATIVE) Ur Amphetamine Screen (NEGATIVE) U Methamphetamines Scrn (NEGATIVE) U Benzodiazepines Scrn (NEGATIVE) U Cocaine Metab Screen (NEGATIVE) U Marijuana (THC) Screen (NEGATIVE) 05/24/18 05/24/18 05/24/18 Range/Units 05:38 05:38 11:45 WBC 15.68 H (4.0-11.0) K/uL RBC 3.52 L (4.30-5.90) M/uL Hgb 11.2 L (12.0-16.0) g/dL Hct 33.1 L (36.0-46.0) % MCV 94.0 (80.0-98.0) fL MCH 31.8 (27.0-32.0) pg MCHC 33.8 (31.0-37.0) g/dL RDW Std Deviation 42.9 (28.0-62.0) fl RDW Coeff of Asher 13 (11.0-15.0) % Plt Count 270 (150-400) K/uL MPV 9.50 (7.40-12.00) fL Neut % (Auto) 84.3 H (48.0-80.0) % Lymph % (Auto) 9.3 L (16.0-40.0) % [place] % (Auto) 6.3 (0.0-15.0) % Eos % (Auto) 0.0 (0.0-7.0) % Baso % (Auto) 0.1 (0.0-1.5) % Neut # (Auto) 13.2 H (1.4-5.7) K/uL Lymph # (Auto) 1.5 (0.6-2.4) K/uL [place] # (Auto) 1.0 H (0.0-0.8) K/uL Eos # (Auto) 0.0 (0.0-0.7) K/uL Baso # (Auto) 0.0 (0.0-0.1) K/uL Nucleated RBC % 0.0 /100WBC Nucleated RBCs # 0 K/uL Sodium 135 L (136-145) mmol/L Potassium 3.7 (3.5-5.1) mmol/L Chloride 104 (98-107) mmol/L Carbon Dioxide 23.1 (21.0-32.0) mmol/L BUN 5 L (7.0-18.0) mg/dL Creatinine 0.7 (0.6-1.0) mg/dL Est Cr Clr Drug Dosing 70.70 mL/min Estimated GFR (MDRD) > 60.0 ml/min Glucose 118 H (74-106) mg/dL Calcium 8.2 L (8.5-10.1) mg/dL Phosphorus 3.3 (2.6-4.7) mg/dL Magnesium 1.7 L (1.8-2.4) mg/dL Total Bilirubin 1.0 (0.2-1.0) mg/dL AST 63 H (15-37) IU/L ALT 54 (14-63) IU/L Alkaline Phosphatase 43 L (46-116) U/L Total Protein 6.2 L (6.4-8.2) g/dL Albumin 2.8 L (3.4-5.0) g/dL Globulin 3.4 (2.0-3.5) g/dL Albumin/Globulin Ratio 0.8 L (1.3-2.8) Urine Color Urine Appearance Urine pH (5.0-8.0) Ur Specific Wolf (1.001-1.035) Urine Protein (NEGATIVE) mg/dL Urine Glucose (UA) (NEGATIVE) mg/dL Urine Ketones (NEGATIVE) mg/dL Urine Occult Blood (NEGATIVE) Urine Nitrite (NEGATIVE) Urine Bilirubin (NEGATIVE) Urine Urobilinogen (<2.0) EU/dL Ur Leukocyte Esterase (NEGATIVE) Urine RBC (0-2/HPF) Urine WBC (0-5/HPF) Ur Epithelial Cells (NONE-FEW) Urine Bacteria (NEGATIVE) Urine Opiates Screen NEGATIVE (NEGATIVE) Ur Oxycodone Screen NEGATIVE (NEGATIVE) Urine Methadone Screen NEGATIVE (NEGATIVE) Ur Barbiturates Screen NEGATIVE (NEGATIVE) Ur Phencyclidine Scrn NEGATIVE (NEGATIVE) Ur Amphetamine Screen NEGATIVE (NEGATIVE) U Methamphetamines Scrn NEGATIVE (NEGATIVE) U Benzodiazepines Scrn NEGATIVE (NEGATIVE) U Cocaine Metab Screen NEGATIVE (NEGATIVE) U Marijuana (THC) Screen POSITIVE (NEGATIVE) Result Diagrams: 05/24/18 05:38 05/24/18 05:38 Orders Last 24hrs: Active Orders 24 hr Category Date Time Status Admission Status [Patient Status] [ADT] Stat ADT 05/23/18 22:45 Active Regular Diet [DIET] Diet 05/24/18 Breakfast Active Chest 1V Frontal [CR] Stat Exams 05/23/18 20:40 Taken Chest 2V [CR] Routine Exams 05/24/18 13:20 Ordered KUB [Abdomen 1V Flat] [CR] Routine Exams 05/24/18 11:11 Ordered CBC WITH AUTO DIFF [HEME] AM Lab 05/25/18 05:11 Ordered COMPREHENSIVE METABOLIC PN,CMP [CHEM] AM Lab 05/25/18 05:11 Ordered CULTURE BLOOD [BC] Stat Lab 05/23/18 19:29 Received CULTURE BLOOD [BC] Stat Lab 05/23/18 19:38 Received CULTURE URINE [RM] Stat Lab 05/23/18 20:35 Received MAGNESIUM [CHEM] AM Lab 05/25/18 05:11 Ordered Acetaminophen [Tylenol] Med 05/23/18 23:27 Active 650 mg PO Q4H PRN Nicotine [Habitrol] Med 05/23/18 23:45 Active 14 mg TRDERM DAILY Ondansetron [Zofran ODT] Med 05/23/18 23:28 Active 4 mg PO Q6H PRN Sodium Chloride 0.9% [Normal Saline] 1,000 ml Med 05/23/18 23:30 Active IV ASDIRECTED Sodium Chloride 0.9% [Saline Flush] Med 05/23/18 19:19 Active 10 ml FLUSH ASDIRECTED PRN Sodium Chloride 0.9% [Saline Flush] Med 05/23/18 19:19 Active 2.5 ml FLUSH ASDIRECTED PRN Temazepam [Restoril] Med 05/24/18 21:00 Active 15 mg PO BEDTIME Blood Culture x2 Reflex Set [OM.PC] Stat Oth 05/23/18 19:19 Ordered Saline Lock Insert [OM.PC] Stat Oth 05/23/18 19:18 Ordered Medication Orders Acetaminophen (Tylenol) 650 mg PO Q4H PRN PRN Reason: Pain Last Admin: 05/24/18 03:02 Dose: 650 mg Sodium Chloride (Normal Saline) 1,000 mls @ 100 mls/hr IV ASDIRECTED [facility] Last Admin: 05/24/18 09:41 Dose: 100 mls/hr Infusion: 05/24/18 09:41 Dose: 100 mls/hr Admin: 05/23/18 23:46 Dose: 100 mls/hr Nicotine (Habitrol) 14 mg TRDERM DAILY [facility] Last Admin: 05/24/18 09:39 Dose: 14 mg Admin: 05/23/18 23:46 Dose: 14 mg Ondansetron HCl (Zofran Odt) 4 mg PO Q6H PRN PRN Reason: Nausea/Vomiting Last Admin: 05/24/18 03:02 Dose: 4 mg Sodium Chloride (Saline Flush) 10 ml FLUSH ASDIRECTED PRN PRN Reason: Keep Vein Open Last Admin: 05/23/18 19:37 Dose: 10 ml Sodium Chloride (Saline Flush) 2.5 ml FLUSH ASDIRECTED PRN PRN Reason: Keep Vein Open Last Admin: 05/23/18 19:37 Dose: 2.5 ml Temazepam (Restoril) 15 mg PO BEDTIME [facility]
[2018-05-24] MEDS: Temazepam 15 MG Cap PO SCH (20:13)
[2018-05-24] MEDS ORDERED: Nicotine 14 MG/24 Hr Patch TRDERM SCH (21:00)
[2018-05-25] MEDS: Acetaminophen 325 MG Tab PO PRN ×2 (05:01→22:51)
[2018-05-25 06:43] LABS: CHLORIDE,CL 106 mmol/L (98-107); SODIUM,NA 139 mmol/L (136-145)
[2018-05-25] MEDS: Nicotine 14 MG/24 Hr Patch TRDERM SCH (09:35)
[2018-05-25] MEDS: Sodium Chloride 0.9% 1,000 ML IV SCH ×2 (09:39→22:43)
[2018-05-25] MEDS ORDERED: Cholecalciferol (Vitamin D3) 1,000 Unit Tab PO ONE (12:00)
[2018-05-25] MEDS ORDERED: Levofloxacin/Dextrose 5%-Water 750 MG in Premix Bag 1 BAG IV SCH (12:00)
[2018-05-25] MEDS ORDERED: Potassium Chloride 20 MEQ Tab.ER PO ONE (12:03)
[2018-05-25] MEDS: Cholecalciferol (Vitamin D3) 1,000 Unit Tab PO SCH (12:31)
--- NOTE | 2018-05-25 14:19 | PCM.PN ---
- General Info Date of Service: 05/25/18 Subjective Update: Annie Klein is a 58 y/o female with history of Multiple sclerosis who presented to the ER with nausea and vomiting. She was admitted for nausea, vomiting control. Her symptoms have improved. She denies any nausea or vomiting. Has been tolerating liquid PO diet. A chest xray performed today shows a left lower lobe infiltrate. She was started on Levaquin 750 mg IV Q24H. Denies any chest pain, abdominal pain. No dysuria or diarrhea. - Patient Data Vitals - Most Recent: Last Vital Signs Temp 36.2 C 05/25/18 11:41 Pulse 86 05/25/18 11:41 Resp 20 05/25/18 11:41 BP 116/74 05/25/18 11:41 Pulse Ox 96 05/25/18 11:41 Weight - Most Recent: 57.107 kg I&O - Last 24 Hours: Intake & Output 05/24/18 05/25/18 05/25/18 22:59 06:59 14:59 Intake Total 2250 2259 Output Total 800 500 Balance 1450 1759 Lab Results Last 24 Hours: Laboratory Results - last 24 hr 05/25/18 05/25/18 Range/Units 05:30 05:50 WBC 8.08 (4.0-11.0) K/uL RBC 3.57 L (4.30-5.90) M/uL Hgb 11.4 L (12.0-16.0) g/dL Hct 33.7 L (36.0-46.0) % MCV 94.4 (80.0-98.0) fL MCH 31.9 (27.0-32.0) pg MCHC 33.8 (31.0-37.0) g/dL RDW Std Deviation 43.0 (28.0-62.0) fl RDW Coeff of Asher 13 (11.0-15.0) % Plt Count 297 (150-400) K/uL MPV 9.40 (7.40-12.00) fL Neut % (Auto) 67.7 (48.0-80.0) % Lymph % (Auto) 23.6 (16.0-40.0) % [place] % (Auto) 7.5 (0.0-15.0) % Eos % (Auto) 1.0 (0.0-7.0) % Baso % (Auto) 0.2 (0.0-1.5) % Neut # (Auto) 5.5 (1.4-5.7) K/uL Lymph # (Auto) 1.9 (0.6-2.4) K/uL [place] # (Auto) 0.6 (0.0-0.8) K/uL Eos # (Auto) 0.1 (0.0-0.7) K/uL Baso # (Auto) 0.0 (0.0-0.1) K/uL Nucleated RBC % 0.0 /100WBC Nucleated RBCs # 0 K/uL Sodium 139 (136-145) mmol/L Potassium 3.6 (3.5-5.1) mmol/L Chloride 106 (98-107) mmol/L Carbon Dioxide 23.5 (21.0-32.0) mmol/L BUN 5 L (7.0-18.0) mg/dL Creatinine 0.7 (0.6-1.0) mg/dL Est Cr Clr Drug Dosing 70.70 mL/min Estimated GFR (MDRD) > 60.0 ml/min Glucose 88 (74-106) mg/dL Calcium 8.5 (8.5-10.1) mg/dL Magnesium 2.0 (1.8-2.4) mg/dL Total Bilirubin 0.6 (0.2-1.0) mg/dL AST 36 (15-37) IU/L ALT 51 (14-63) IU/L Alkaline Phosphatase 54 (46-116) U/L Total Protein 6.5 (6.4-8.2) g/dL Albumin 2.8 L (3.4-5.0) g/dL Globulin 3.7 H (2.0-3.5) g/dL Albumin/Globulin Ratio 0.8 L (1.3-2.8) Jose J Results Last 24 Hours: Microbiology 05/23/18 20:35 Urine Culture - Final Urine, Clean Catch MIXED MIRANDA >100,000 CFU/ML 05/23/18 19:38 Aerobic Blood Culture - Preliminary Blood - Venous - Lab Draw NO GROWTH AFTER 1 DAY Anaerobic Blood Culture - Preliminary NO GROWTH AFTER 1 DAY 05/23/18 19:29 Aerobic Blood Culture - Preliminary Blood - Venous NO GROWTH AFTER 1 DAY Anaerobic Blood Culture - Preliminary NO GROWTH AFTER 1 DAY Med Orders - Current: Current Medications Acetaminophen (Tylenol) 650 mg PO Q4H PRN PRN Reason: Pain Last Admin: 05/25/18 05:01 Dose: 650 mg Benzonatate (Tessalon Perles) 100 mg PO TID PRN PRN Reason: Cough Cholecalciferol (Vitamin D3) 5,000 units PO DAILY [facility] Last Admin: 05/25/18 12:31 Dose: 5,000 units Sodium Chloride (Normal Saline) 1,000 mls @ 100 mls/hr IV ASDIRECTED [facility] Last Admin: 05/25/18 09:39 Dose: 100 mls/hr Levofloxacin/Dextrose 750 mg/ (Premix) 150 mls @ 100 mls/hr IV Q24H [facility] Last Admin: 05/25/18 12:32 Dose: 100 mls/hr Nicotine (Habitrol) 14 mg TRDERM DAILY [facility] Last Admin: 05/25/18 09:35 Dose: 14 mg Ondansetron HCl (Zofran Odt) 4 mg PO Q6H PRN PRN Reason: Nausea/Vomiting Last Admin: 05/24/18 03:02 Dose: 4 mg Sodium Chloride (Saline Flush) 10 ml FLUSH ASDIRECTED PRN PRN Reason: Keep Vein Open Last Admin: 05/23/18 19:37 Dose: 10 ml Sodium Chloride (Saline Flush) 2.5 ml FLUSH ASDIRECTED PRN PRN Reason: Keep Vein Open Last Admin: 05/23/18 19:37 Dose: 2.5 ml Temazepam (Restoril) 15 mg PO BEDTIME [facility] Last Admin: 05/24/18 20:13 Dose: 15 mg Discontinued Medications Acetaminophen (Tylenol) 650 mg PO NOW ONE Stop: 05/23/18 19:20 Last Admin: 05/23/18 19:36 Dose: 650 mg Cholecalciferol (Vitamin D3) 5,000 units PO DAILY ONE Stop: 05/25/18 12:01 Last Admin: 05/25/18 13:18 Dose: Not Given Sodium Chloride (Normal Saline) 1,000 mls @ 999 mls/hr IV STAT ONE Stop: 05/23/18 20:19 Last Admin: 05/23/18 19:36 Dose: 999 mls/hr Levofloxacin/Dextrose 750 mg/ (Premix) 150 mls @ 100 mls/hr IV ONETIME ONE Stop: 05/24/18 00:13 Last Admin: 05/23/18 23:12 Dose: 100 mls/hr Magnesium Sulfate 2 gm/ Premix 50 mls @ 25 mls/hr IV ONETIME ONE Stop: 05/24/18 12:25 Last Admin: 05/24/18 11:19 Dose: 25 mls/hr Influenza Virus Vaccine (Pharmacy To Dose - Influenza Vaccine) 1 each IM ONETIME ONE Stop: 05/24/18 00:00 Nicotine (Habitrol) 14 mg TRDERM DAILY@2100 [facility] Nicotine (Habitrol) 14 mg TRDERM ONETIME ONE Stop: 05/23/18 23:46 Potassium Chloride (Klor-Con M20) 40 meq PO ONETIME ONE Stop: 05/25/18 12:04 Last Admin: 05/25/18 12:30 Dose: 40 meq - Exam General: Alert, Oriented, No Acute Distress Lungs: Other (left lung crackles in lower field. No wheezing. Good inspiratory intake.) Cardiovascular: Regular Rate, Regular Rhythm GI/Abdominal Exam: Normal Bowel Sounds, Soft, Non-Tender Extremities: Non-Tender, No Pedal Edema Skin: Warm, Dry - Problem List Review Problem List Initiated/Reviewed/Updated: Yes - My Orders Last 24 Hours: My Active Orders 05/24/18 13:20 Chest 2V [CR] Routine 05/25/18 08:58 Benzonatate [Tessalon Perles] 100 mg PO TID PRN 05/25/18 12:00 Levofloxacin/Dextrose 5%-Water [Levaquin in D5W 750 MG/150 ML] 750 mg Premix Bag 1 bag IV Q24H 05/25/18 12:15 Cholecalciferol (Vitamin D3) [Vitamin D3] 5,000 units PO DAILY - Plan Plan:: 1. Community acquired pneumonia- started levaquin 750 mg IV Q24H. Will reassess tomorrow. Ordered Tessalon perles for cough. 2. Multiple sclerosis- will continue her home dose of Vit D. 3. Hypokalemia- replaced with KCl 40 mEq PO once. 4. Nausea/vomiting-resolved. 5. Hypomagnesemia- resolved. 6. Leukocytosis- resolved. Dispo: possibly tomorrow on PO abx.
--- NOTE | 2018-05-25 15:07 | CR ---
EXAM DATE: 05/23/18 PATIENT'S AGE: 57 Patient: RENITA LUZ Facility: [place], [place] Site . Site : 1960 Study: XRay Chest [id number]/29/2018 9:51:09 PM Ordering Physician: Doctor Irizarry Final Report: Indication: Pain. SOB Technique: Chest 1 view Comparison: None Findings/Impression: Cardiovascular and mediastinum: Heart size and vasculature are normal in caliber and appearance. Mediastinum is within normal limits. Lungs and pleural space: An apparent subtle ovoid retrocardiac opacity. Correlate clinically and followup with PA and lateral views the to exclude an infiltrate. No pleural effusions. Bones and soft tissues: No significant findings. Dictated by Jonh Lau MD @ 05/23/2018 10:37:22 PM Dictated by: Jonh Lau MD @ 05/23/2018 22:37:28 (Electronic Signature) Report Signed by Proxy. ORALIA
[2018-05-25] MEDS: Benzonatate 100 MG Cap PO PRN ×2 (15:51→22:51)
--- NOTE | 2018-05-25 19:25 | CR ---
EXAM DATE: 05/23/18 PATIENT'S AGE: 57 Patient: RENITA LUZ Facility: [place], [place] Site . Site : 1960 Study: XRay Abdomen [id number]/30/2018 9:48:43 PM Ordering Physician: Mone Tilley Final Report: INDICATION: Nausea and vomiting COMPARISON: none TECHNIQUE: Two view abdomen. FINDINGS: The bowel gas pattern appears normal. There is no evidence of free intraperitoneal air or soft tissue mass effect. There are no pathologic calcifications. IMPRESSION: Negative abdomen. Dictated by Joe Hauser MD @ May 24 2018 9:53PM (Electronic Signature) Report Signed by Proxy. ORALIA
--- NOTE | 2018-05-25 19:26 | CR ---
EXAM DATE: 05/23/18 PATIENT'S AGE: 57 Patient: RENITA LUZ Facility: [place], [place] Site . Site : 1960 Study: XRay Chest [id number]/30/2018 9:49:05 PM Ordering Physician: Mone Tilley Final Report: INDICATION: Possible pneumonia COMPARISON: none TECHNIQUE: Two view chest. FINDINGS: There is a peripheral infiltrate within the posterior basal segment left lower lobe. This overlies the lower spine on the lateral x-ray. Right lung appears clear. The heart, mediastinum and pulmonary vessels are of normal size. There is no evidence of pleural fluid. IMPRESSION: Peripheral infiltrate noted within the posterior basal segment left lower lobe. Dictated by Joe Hauser MD @ May 24 2018 9:53PM (Electronic Signature) Report Signed by Proxy. ORALIA
[2018-05-25] MEDS: Temazepam 15 MG Cap PO SCH (22:51)
[2018-05-26 05:34] LABS: CHLORIDE,CL 108 mmol/L (98-107); SODIUM,NA 140 mmol/L (136-145)
[2018-05-26 08:25] VITALS: BP 117/75
[2018-05-26] MEDS: Nicotine 14 MG/24 Hr Patch TRDERM SCH (09:46)
[2018-05-26] MEDS: Cholecalciferol (Vitamin D3) 1,000 Unit Tab PO SCH (09:49)
--- NOTE | 2018-05-26 11:30 | PCM.DCSUM1 ---
Discharge Summary - Hospital Course Free Text/Narrative:: Admission date: 05/24/18 Discharge date: 05/26/18 Admission diagnosis: 1. Community acquired pneumonia 2. Leukocytosis 3. Hypokalemia 4. Hypomagnesemia 5. Nausea/vomiting Discharge diagnosis: 1. Community acquired pneumonia 2. Nausea/vomiting, resolved 3. Leukocytosis, resolved 4. Hypokalemia, replaced 5. Hypomagnesemia, replaced Procedures: none Consults: none Hospital course: Annie Klein is a 58 y/o female with a history of multiple sclerosis who presented to the ER complaining of nausea, vomiting and worsening cough. Chest xray showed a left lower lobe infiltrate. She was admitted for community acquired pneumonia and started on Levaquin 750 mg IV Q24H. Her nausea and vomiting resolved. Her electrolyte abnormalities were replaced. She did not need supplemental oxygen during this hospitalization. On discharge, she was prescribed Levaquin 750 mg PO Q24H for 7 days and benzonatate for cough. She was instructed to follow-up with her primary care provider in 1-2 weeks. Follow-up: Primary care provider in 1-2 weeks. - Discharge Data Discharge Date: 05/26/18 Discharge Disposition: Home, Self-Care 01 Condition: Fair - Patient Instructions Diet: Regular Diet as Tolerated Driving: May Drive Today Showering/Bathing: December Shower Notify Provider of: Fever, Increased Pain, Swelling and Redness, Drainage, Nausea and/or Vomiting - Discharge Plan *PRESCRIPTION DRUG MONITORING PROGRAM REVIEWED*: Not Applicable *COPY OF PRESCRIPTION DRUG MONITORING REPORT IN PATIENT LINDA: Not Applicable Prescriptions/Med Rec: Benzonatate [Tessalon Perle] 100 mg PO Q6H PRN 5 Days #30 capsule PRN Reason: Cough levoFLOXacin [Levaquin] 750 mg PO DAILY 7 Days tab Home Medications: Home Meds Cholecalciferol (Vitamin D3) [Vitamin D] 5,000 mg PO DAILY 05/24/18 [History] Vitamin B Complex 1 each PO DAILY 05/24/18 [History] Benzonatate [Tessalon Perle] 100 mg PO Q6H PRN 5 Days #30 capsule 05/26/18 [Rx] levoFLOXacin [Levaquin] 750 mg PO DAILY 7 Days tab 05/26/18 [Rx] Patient Handouts: Levofloxacin tablets, Benzonatate capsules, Community- Acquired Pneumonia, Adult, [id number] Referrals: PCP,None [Primary Care Provider] - - Discharge Summary/Plan Comment DC Time >30 min.: No - Patient Data Vitals - Most Recent: Last Vital Signs Temp 36.3 C 05/26/18 08:23 Pulse 90 05/26/18 08:23 Resp 12 05/26/18 08:23 BP 117/75 05/26/18 08:23 Pulse Ox 96 05/26/18 08:23 Weight - Most Recent: 57.107 kg I&O - Last 24 hours: Intake & Output 05/25/18 05/26/18 05/26/18 22:59 06:59 14:59 Intake Total 2370 1358 Output Total 2000 1200 Balance 370 158 Lab Results - Last 24 hrs: Laboratory Results - last 24 hr 05/26/18 05/26/18 Range/Units 04:55 04:55 WBC 6.54 (4.0-11.0) K/uL RBC 3.35 L (4.30-5.90) M/uL Hgb 10.8 L (12.0-16.0) g/dL Hct 31.5 L (36.0-46.0) % MCV 94.0 (80.0-98.0) fL MCH 32.2 H (27.0-32.0) pg MCHC 34.3 (31.0-37.0) g/dL RDW Std Deviation 42.6 (28.0-62.0) fl RDW Coeff of Asher 12 (11.0-15.0) % Plt Count 307 (150-400) K/uL MPV 9.50 (7.40-12.00) fL Neut % (Auto) 51.5 (48.0-80.0) % Lymph % (Auto) 37.8 (16.0-40.0) % [place] % (Auto) 7.6 (0.0-15.0) % Eos % (Auto) 2.8 (0.0-7.0) % Baso % (Auto) 0.3 (0.0-1.5) % Neut # (Auto) 3.4 (1.4-5.7) K/uL Lymph # (Auto) 2.5 H (0.6-2.4) K/uL [place] # (Auto) 0.5 (0.0-0.8) K/uL Eos # (Auto) 0.2 (0.0-0.7) K/uL Baso # (Auto) 0.0 (0.0-0.1) K/uL Nucleated RBC % 0.0 /100WBC Nucleated RBCs # 0 K/uL Sodium 140 (136-145) mmol/L Potassium 3.8 (3.5-5.1) mmol/L Chloride 108 H (98-107) mmol/L Carbon Dioxide 26.6 (21.0-32.0) mmol/L BUN 4 L (7.0-18.0) mg/dL Creatinine 0.6 (0.6-1.0) mg/dL Est Cr Clr Drug Dosing 82.48 mL/min Estimated GFR (MDRD) > 60.0 ml/min Glucose 87 (74-106) mg/dL Calcium 8.4 L (8.5-10.1) mg/dL MACARIO Results - Last 24 hrs: Microbiology 05/23/18 19:38 Aerobic Blood Culture - Preliminary Blood - Venous - Lab Draw NO GROWTH AFTER 2 DAYS Anaerobic Blood Culture - Preliminary NO GROWTH AFTER 2 DAYS 05/23/18 19:29 Aerobic Blood Culture - Preliminary Blood - Venous NO GROWTH AFTER 2 DAYS Anaerobic Blood Culture - Preliminary NO GROWTH AFTER 2 DAYS 05/23/18 20:35 Urine Culture - Final Urine, Clean Catch MIXED MIRANDA >100,000 CFU/ML Med Orders - Current: Current Medications Acetaminophen (Tylenol) 650 mg PO Q4H PRN PRN Reason: Pain Last Admin: 05/25/18 22:51 Dose: 650 mg Benzonatate (Tessalon Perles) 100 mg PO TID PRN PRN Reason: Cough Last Admin: 05/25/18 22:51 Dose: 100 mg Cholecalciferol (Vitamin D3) 5,000 units PO DAILY [facility] Last Admin: 05/26/18 09:49 Dose: 5,000 units Sodium Chloride (Normal Saline) 1,000 mls @ 100 mls/hr IV ASDIRECTED [facility] Last Admin: 05/25/18 22:43 Dose: 100 mls/hr Levofloxacin/Dextrose 750 mg/ (Premix) 150 mls @ 100 mls/hr IV Q24H [facility] Last Admin: 05/25/18 12:32 Dose: 100 mls/hr Nicotine (Habitrol) 14 mg TRDERM DAILY [facility] Last Admin: 05/26/18 09:46 Dose: 14 mg Ondansetron HCl (Zofran Odt) 4 mg PO Q6H PRN PRN Reason: Nausea/Vomiting Last Admin: 05/24/18 03:02 Dose: 4 mg Sodium Chloride (Saline Flush) 10 ml FLUSH ASDIRECTED PRN PRN Reason: Keep Vein Open Last Admin: 05/23/18 19:37 Dose: 10 ml Sodium Chloride (Saline Flush) 2.5 ml FLUSH ASDIRECTED PRN PRN Reason: Keep Vein Open Last Admin: 05/23/18 19:37 Dose: 2.5 ml Temazepam (Restoril) 15 mg PO BEDTIME [facility] Last Admin: 05/25/18 22:51 Dose: 15 mg Discontinued Medications Acetaminophen (Tylenol) 650 mg PO NOW ONE Stop: 05/23/18 19:20 Last Admin: 05/23/18 19:36 Dose: 650 mg Cholecalciferol (Vitamin D3) 5,000 units PO DAILY ONE Stop: 05/25/18 12:01 Last Admin: 05/25/18 13:18 Dose: Not Given Sodium Chloride (Normal Saline) 1,000 mls @ 999 mls/hr IV STAT ONE Stop: 05/23/18 20:19 Last Admin: 05/23/18 19:36 Dose: 999 mls/hr Levofloxacin/Dextrose 750 mg/ (Premix) 150 mls @ 100 mls/hr IV ONETIME ONE Stop: 05/24/18 00:13 Last Admin: 05/23/18 23:12 Dose: 100 mls/hr Magnesium Sulfate 2 gm/ Premix 50 mls @ 25 mls/hr IV ONETIME ONE Stop: 05/24/18 12:25 Last Admin: 05/24/18 11:19 Dose: 25 mls/hr Influenza Virus Vaccine (Pharmacy To Dose - Influenza Vaccine) 1 each IM ONETIME ONE Stop: 05/24/18 00:00 Nicotine (Habitrol) 14 mg TRDERM DAILY@2100 BERNARD Nicotine (Habitrol) 14 mg TRDERM ONETIME ONE Stop: 05/23/18 23:46 Potassium Chloride (Klor-Con M20) 40 meq PO ONETIME ONE Stop: 05/25/18 12:04 Last Admin: 05/25/18 12:30 Dose: 40 meq
== END 2018-05-26 10:00 | disposition home or self-care (01) ==
LOC: MW.ED 17:41 → MW.MS 22:45
PROVIDERS: ADMIT Internal Medicine; ATTEND Internal Medicine
DX: J18.9 Pneumonia, unspecified organism (principal); E87.6 Hypokalemia; E83.42 Hypomagnesemia; D72.829 Elevated white blood cell count, unspecified; F17.210 Nicotine dependence, cigarettes, uncomplicated; Z79.899 Other long term (current) drug therapy
CPT/HCPCS: 36415; 71045; 71046; 74018; 80048; 80053; 80305; 81001; 83735; 84100; 85025; 87040; 87086; 90686; 96360; 99285; A9270; G0008; J1956; J3475; J7040; 96361; 96365; 96375; 96376; 99284; G0378

== ENCOUNTER 2019-07-08 09:26 | Emergency (ER) | payer SELFPAY ==
[2019-07-08] MEDS ORDERED: Albuterol/Ipratropium 3.0-0.5 MG/3 ML Neb Soln NEB ONE ×2 (09:46→11:29)
[2019-07-08] MEDS ORDERED: Sodium Chloride 0.9% 1,000 ML IV ONE (09:46)
[2019-07-08] MEDS ORDERED: methylPREDNISolone Sodium Succinate 125 MG/2 ML SDV IVPUSH ONE (09:46)
[2019-07-08] MEDS ORDERED: Sodium Chloride 0.9% 2.5 ML Syringe FLUSH PRN (09:46)
[2019-07-08] MEDS ORDERED: Ketorolac 30 MG/ML SDV IVPUSH ONE (09:46)
[2019-07-08] MEDS ORDERED: Sodium Chloride 0.9% 10 ML Syringe FLUSH PRN (09:46)
[2019-07-08] MEDS ORDERED: Albuterol/Ipratropium 3.0-0.5 MG/3 ML Neb Soln ONE (09:47)
--- NOTE | 2019-07-08 09:48 | EDM.PDOC ---
ED HPI GENERAL MEDICAL PROBLEM - General Chief Complaint: Respiratory Problem Stated Complaint: PNEUMONIA Time Seen by Provider: 07/08/19 09:42 - History of Present Illness INITIAL COMMENTS - FREE TEXT/NARRATIVE: HISTORY AND PHYSICAL: History of present illness: The patient is a 59-year-old female with no significant cardiac or pulmonary disease but who smokes several cigarettes a day and has had pneumonia in the past and presents with at least 2-3 weeks of cough productive of phlegm occasionally blood shortness of breath bilateral chest pain more on the left which has worsened over the last few days. She's had no documented fever or chills she has no abdominal pain nausea or vomiting and she did not get her influenza shot. She does not have a local doctor for follow-up and she is here with family at their insistence because she has worsened over the last few days. She says she is concerned about fluid in her lungs, "fluid around her heart" although she has not had either in the past. She says there is more discomfort with deep breaths and coughing on the left side but no specific rib pain or upper abdominal discomfort. She has no flank pain or urinary symptoms no leg pain or swelling. She has been using [id number] preps for managing the symptoms Review of systems: As per history of present illness and below otherwise all systems reviewed and negative. Past medical history: As per history of present illness and as reviewed below otherwise noncontributory. Surgical history: As per history of present illness and as reviewed below otherwise noncontributory. Social history: No reported history of drug or alcohol abuse. Family history: As per history of present illness and as reviewed below otherwise noncontributory. Physical exam: General: Well-developed well-nourished female who is nontoxic and has a dry harsh cough on my evaluation. Vital signs are noted by me. She is not breathless with my evaluation HEENT: Atraumatic, normocephalic, pupils reactive, negative for conjunctival pallor or scleral icterus, mucous membranes tacky, throat clear, neck supple, nontender, trachea midline. Lungs: Diminished air exchange throughout all lung hicks with fine wheezing more prominent at the bases bilaterally but throughout as well as coarse breath sounds and rhonchi, there is no work of breathing or abdominal muscle use, breath sounds equal bilaterally, chest nontender. Heart: S1S2, regular rate and rhythm no overt murmurs Abdomen: Soft, nondistended, nontender. Negative for masses or hepatosplenomegaly. Negative for costovertebral tenderness. Bowel sounds are hypoactive Pelvis: Stable nontender. Genitourinary: Deferred. Rectal: Deferred. Extremities: Atraumatic, negative for cords or calf pain. Neurovascular unremarkable. No pedal edema or leg asymmetry Neuro: Awake, alert, oriented. Cranial nerves II through XII unremarkable. Cerebellum unremarkable. Motor and sensory unremarkable throughout. Exam nonfocal. Diagnostics: EKG chest x-ray influenza CBC CMP lactic acid blood cultures UA with reflex Therapeutics: IV O2 monitor IV fluids duo neb Solu-Medrol Toradol spacer, spacer teaching After the duo neb the patient is much more open and moving air much better and no longer has wheezing but does have some rhonchi and a loose cough. Will give her another DuoNeb I discussed with her all testing results and that she can go home with a spacer and inhaler prednisone and a Z-Rehan. At this point I have encouraged her to follow-up in our clinic and to eliminate smoking and push hydration. I told her to monitor her symptoms and to make sure she gets that follow-up. I will place her name on the expedited follow-up Impression: Acute bronchitis with bronchospasm Definitive disposition and diagnosis as appropriate pending reevaluation and review of above. chest congestion Pain Score (Numeric/FACES): 10 - Related Data Allergies Allergy/AdvReac Type Severity Reaction Status Date / Time No Known Allergies Allergy Verified 07/08/19 09:40 Home Meds: Home Meds Cholecalciferol (Vitamin D3) [Vitamin D] 5,000 mg PO DAILY 05/24/18 [History] Vitamin B Complex 1 each PO DAILY 05/24/18 [History] Past Medical History HEENT History: Reports: Impaired Vision Other HEENT History: reading glasses Gastrointestinal History: Reports: Diverticulosis DIGESTION OPERATOR History: Reports: Other DIGESTION OPERATOR History: tubal ligation Neurological History: Reports: Concussion, Migraines, MS - Infectious Disease History Infectious Disease History: Reports: Chicken Pox, Measles, Mumps, Rubella Social & Family History - Family History Family Medical History: Noncontributory - Tobacco Use Smoking Status *Q: Current Every Day Smoker Years of Tobacco use: 40 Packs/Tins Daily: 0.2 - Caffeine Use Caffeine Use: Reports: Coffee - Recreational Drug Use Recreational Drug Use: No ED ROS GENERAL - Review of Systems Review Of Systems: Comprehensive ROS is negative, except as noted in HPI. ED EXAM, GENERAL - Physical Exam Exam: See Below (see dictation) Course - Vital Signs Last Recorded V/S: Last Vital Signs Temp 36.5 C 07/08/19 11:14 Pulse 82 07/08/19 11:14 Resp 20 07/08/19 11:14 BP 106/60 07/08/19 11:14 Pulse Ox 97 07/08/19 11:14 - Orders/Labs/Meds Orders: Active Orders 24 hr Category Date Time Status Cardiac Monitoring [RC] . DIRECTED Care 07/08/19 09:45 Active Communication Order [RC] STAT Care 07/08/19 11:29 Ordered EKG Documentation Completion [RC] STAT Care 07/08/19 09:45 Active Oxygen Therapy, ED [RC] ASDIRECTED Care 07/08/19 09:45 Active Pulse Oximetry [RC] ASDIRECTED Care 07/08/19 09:45 Active RT Aerosol Therapy [RC] ASDIRECTED Care 07/08/19 09:46 Active RT Aerosol Therapy [RC] ASDIRECTED Care 07/08/19 11:30 Ordered CULTURE BLOOD [BC] Stat Lab 07/08/19 10:49 Received CULTURE BLOOD [BC] Stat Lab 07/08/19 11:03 Received Albuterol/Ipratropium [DuoNeb 3.0-0.5 MG/3 ML] Med 07/08/19 11:29 Once 3 ml NEB ONETIME ONE Sodium Chloride 0.9% [Saline Flush] Med 07/08/19 09:46 Active 10 ml FLUSH ASDIRECTED PRN Sodium Chloride 0.9% [Saline Flush] Med 07/08/19 09:46 Active 2.5 ml FLUSH ASDIRECTED PRN Blood Culture x2 Reflex Set [OM.PC] Stat Oth 07/08/19 09:46 Ordered Saline Lock Insert [OM.PC] Stat Oth 07/08/19 09:45 Ordered Medication Orders Sodium Chloride (Saline Flush) 10 ml FLUSH ASDIRECTED PRN PRN Reason: Keep Vein Open Sodium Chloride (Saline Flush) 2.5 ml FLUSH ASDIRECTED PRN PRN Reason: Keep Vein Open Labs: Laboratory Tests 07/08/19 07/08/19 07/08/19 Range/Units 10:05 10:05 10:05 WBC 9.85 (4.0-11.0) K/uL RBC 4.15 L (4.30-5.90) M/uL Hgb 13.6 (12.0-16.0) g/dL Hct 39.2 (36.0-46.0) % MCV 94.5 (80.0-98.0) fL MCH 32.8 H (27.0-32.0) pg MCHC 34.7 (31.0-37.0) g/dL RDW Std Deviation 45.2 (28.0-62.0) fl RDW Coeff of Asher 13 (11.0-15.0) % Plt Count 362 (150-400) K/uL MPV 9.30 (7.40-12.00) fL Neut % (Auto) 65.6 (48.0-80.0) % Lymph % (Auto) 26.2 (16.0-40.0) % [place] % (Auto) 5.8 (0.0-15.0) % Eos % (Auto) 2.0 (0.0-7.0) % Baso % (Auto) 0.4 (0.0-1.5) % Neut # (Auto) 6.5 H (1.4-5.7) K/uL Lymph # (Auto) 2.6 H (0.6-2.4) K/uL [place] # (Auto) 0.6 (0.0-0.8) K/uL Eos # (Auto) 0.2 (0.0-0.7) K/uL Baso # (Auto) 0.0 (0.0-0.1) K/uL Nucleated RBC % 0.0 /100WBC Nucleated RBCs # 0 K/uL Lactate 1.8 (0.20-2.00) mmol/L Sodium 139 (136-145) mmol/L Potassium 4.0 (3.5-5.1) mmol/L Chloride 104 (98-107) mmol/L Carbon Dioxide 24.4 (21.0-32.0) mmol/L BUN 8 (7.0-18.0) mg/dL Creatinine 0.9 (0.6-1.0) mg/dL Est Cr Clr Drug Dosing 51.92 mL/min Estimated GFR (MDRD) > 60.0 ml/min Glucose 93 (74-106) mg/dL Calcium 9.2 (8.5-10.1) mg/dL Total Bilirubin 0.4 (0.2-1.0) mg/dL AST 24 (15-37) IU/L ALT 26 (14-63) IU/L Alkaline Phosphatase 58 (46-116) U/L Total Protein 7.7 (6.4-8.2) g/dL Albumin 3.9 (3.4-5.0) g/dL Globulin 3.8 (2.6-4.0) g/dL Albumin/Globulin Ratio 1.0 (0.9-1.6) Urine Color Urine Appearance Urine pH (5.0-8.0) Ur Specific [place] (1.001-1.035) Urine Protein (NEGATIVE) mg/dL Urine Glucose (UA) (NEGATIVE) mg/dL Urine Ketones (NEGATIVE) mg/dL Urine Occult Blood (NEGATIVE) Urine Nitrite (NEGATIVE) Urine Bilirubin (NEGATIVE) Urine Urobilinogen (<2.0) EU/dL Ur Leukocyte Esterase (NEGATIVE) 07/08/19 Range/Units 11:00 WBC (4.0-11.0) K/uL RBC (4.30-5.90) M/uL Hgb (12.0-16.0) g/dL Hct (36.0-46.0) % MCV (80.0-98.0) fL MCH (27.0-32.0) pg MCHC (31.0-37.0) g/dL RDW Std Deviation (28.0-62.0) fl RDW Coeff of Asher (11.0-15.0) % Plt Count (150-400) K/uL MPV (7.40-12.00) fL Neut % (Auto) (48.0-80.0) % Lymph % (Auto) (16.0-40.0) % [place] % (Auto) (0.0-15.0) % Eos % (Auto) (0.0-7.0) % Baso % (Auto) (0.0-1.5) % Neut # (Auto) (1.4-5.7) K/uL Lymph # (Auto) (0.6-2.4) K/uL [place] # (Auto) (0.0-0.8) K/uL Eos # (Auto) (0.0-0.7) K/uL Baso # (Auto) (0.0-0.1) K/uL Nucleated RBC % /100WBC Nucleated RBCs # K/uL Lactate (0.20-2.00) mmol/L Sodium (136-145) mmol/L Potassium (3.5-5.1) mmol/L Chloride (98-107) mmol/L Carbon Dioxide (21.0-32.0) mmol/L BUN (7.0-18.0) mg/dL Creatinine (0.6-1.0) mg/dL Est Cr Clr Drug Dosing mL/min Estimated GFR (MDRD) ml/min Glucose (74-106) mg/dL Calcium (8.5-10.1) mg/dL Total Bilirubin (0.2-1.0) mg/dL AST (15-37) IU/L ALT (14-63) IU/L Alkaline Phosphatase (46-116) U/L Total Protein (6.4-8.2) g/dL Albumin (3.4-5.0) g/dL Globulin (2.6-4.0) g/dL Albumin/Globulin Ratio (0.9-1.6) Urine Color YELLOW Urine Appearance CLEAR Urine pH 6.5 (5.0-8.0) Ur Specific [place] <= 1.005 (1.001-1.035) Urine Protein NEGATIVE (NEGATIVE) mg/dL Urine Glucose (UA) NEGATIVE (NEGATIVE) mg/dL Urine Ketones NEGATIVE (NEGATIVE) mg/dL Urine Occult Blood NEGATIVE (NEGATIVE) Urine Nitrite NEGATIVE (NEGATIVE) Urine Bilirubin NEGATIVE (NEGATIVE) Urine Urobilinogen 0.2 (<2.0) EU/dL Ur Leukocyte Esterase NEGATIVE (NEGATIVE) Meds: Medications Generic Name Dose Route Start Last Admin Trade Name Freq PRN Reason Stop Dose Admin Sodium Chloride 10 ml 07/08/19 09:46 Saline Flush FLUSH ASDIRECTED PRN Keep Vein Open Sodium Chloride 2.5 ml 07/08/19 09:46 Saline Flush FLUSH ASDIRECTED PRN Keep Vein Open Discontinued Medications Generic Name Dose Route Start Last Admin Trade Name Freq PRN Reason Stop Dose Admin Albuterol/Ipratropium 3 ml 07/08/19 09:46 07/08/19 09:49 Duoneb 3.0-0.5 Mg/3 Ml NEB 07/08/19 09:47 3 ml ONETIME ONE Administration Albuterol/Ipratropium Confirm 07/08/19 09:47 07/08/19 10:21 Duoneb 3.0-0.5 Mg/3 Ml Administered 07/08/19 09:48 Not Given Dose 3 ml .ROUTE .STK-MED ONE Sodium Chloride 1,000 mls @ 999 mls/hr 07/08/19 09:46 07/08/19 10:07 Normal Saline IV 07/08/19 10:46 999 mls/hr STAT ONE Administration Ketorolac Tromethamine 30 mg 07/08/19 09:46 07/08/19 10:07 Toradol IVPUSH 07/08/19 09:47 30 mg ONETIME ONE Administration Methylprednisolone Sodium Succinate 125 mg 07/08/19 09:46 07/08/19 10:12 Solu-Medrol IVPUSH 07/08/19 09:47 125 mg ONETIME ONE Administration Departure - Departure Time of Disposition: 11:31 Disposition: Home, Self-Care 01 Condition: Good Clinical Impression: Bronchitis with bronchospasm - Discharge Information Referrals: PCP,Unobtain [Primary Care Provider] - Forms: ED Department Discharge Additional Instructions: The following information is given to patients seen in the emergency department who are being discharged to home. This information is to outline your options for follow-up care. We provide all patients seen in our emergency department with a follow-up referral. The need for follow-up, as well as the timing and circumstances, are variable depending upon the specifics of your emergency department visit. If you don't have a primary care physician on staff, we will provide you with a referral. We always advise you to contact your personal physician following an emergency department visit to inform them of the circumstance of the visit and for follow-up with them and/or the need for any referrals to a consulting specialist. The emergency department will also refer you to a specialist when appropriate. This referral assures that you have the opportunity for followup care with a specialist. All of these measure are taken in an effort to provide you with optimal care, which includes your followup. Under all circumstances we always encourage you to contact your private physician who remains a resource for coordinating your care. When calling for followup care, please make the office aware that this follow-up is from your recent emergency room visit. If for any reason you are refused follow-up, please contact the [facility] emergency department at and ask to speak to the emergency department charge nurse. [facility] Primary care- Internal Medicine and Family [address] [address] Use all medications as prescribed and push hydration. Please try to reduce and/ or quit smoking and call and schedule follow-up appointment in the clinic. Return to ER as needed and as discussed - My Orders Last 24 Hours: My Active Orders 07/08/19 09:45 Cardiac Monitoring [RC] . DIRECTED EKG Documentation Completion [RC] STAT Oxygen Therapy, ED [RC] ASDIRECTED Pulse Oximetry [RC] ASDIRECTED Saline Lock Insert [OM.PC] Stat 07/08/19 09:46 RT Aerosol Therapy [RC] ASDIRECTED Sodium Chloride 0.9% [Saline Flush] 10 ml FLUSH ASDIRECTED PRN Sodium Chloride 0.9% [Saline Flush] 2.5 ml FLUSH ASDIRECTED PRN Blood Culture x2 Reflex Set [OM.PC] Stat 07/08/19 10:49 CULTURE BLOOD [BC] Stat 07/08/19 11:03 CULTURE BLOOD [BC] Stat 07/08/19 11:29 Communication Order [RC] STAT Albuterol/Ipratropium [DuoNeb 3.0-0.5 MG/3 ML] 3 ml NEB ONETIME ONE 07/08/19 11:30 RT Aerosol Therapy [RC] ASDIRECTED - Assessment/Plan Last 24 Hours: My Active Orders 07/08/19 09:45 Cardiac Monitoring [RC] . DIRECTED EKG Documentation Completion [RC] STAT Oxygen Therapy, ED [RC] ASDIRECTED Pulse Oximetry [RC] ASDIRECTED Saline Lock Insert [OM.PC] Stat 07/08/19 09:46 RT Aerosol Therapy [RC] ASDIRECTED Sodium Chloride 0.9% [Saline Flush] 10 ml FLUSH ASDIRECTED PRN Sodium Chloride 0.9% [Saline Flush] 2.5 ml FLUSH ASDIRECTED PRN Blood Culture x2 Reflex Set [OM.PC] Stat 07/08/19 10:49 CULTURE BLOOD [BC] Stat 07/08/19 11:03 CULTURE BLOOD [BC] Stat 07/08/19 11:29 Communication Order [RC] STAT Albuterol/Ipratropium [DuoNeb 3.0-0.5 MG/3 ML] 3 ml NEB ONETIME ONE 07/08/19 11:30 RT Aerosol Therapy [RC] ASDIRECTED
[2019-07-08 11:00] LABS: BLOOD UREA NITROGEN,BUN 8 mg/dL (7.0-18.0); CARBON DIOXIDE,CO2 24.4 mmol/L (21.0-32.0); CHLORIDE,CL 104 mmol/L (98-107); GLUCOSE RANDOM 93 mg/dL (74-106); SODIUM,NA 139 mmol/L (136-145)
--- NOTE | 2019-07-08 11:04 | CR ---
EXAM DATE: 07/08/19 PATIENT'S AGE: 59 Chest: Two views of the chest were obtained. Comparison: Prior chest x-ray of 05/24/18. Minimal scarring is seen within the lateral left costophrenic angle. Lungs otherwise are clear with no acute parenchymal change. Heart size and mediastinum are normal. Mild scoliosis is noted within the spine. Impression: 1. Findings as noted above. 2. Nothing acute is seen. Diagnostic code #2 Report Signed by Proxy. ORALIA
[2019-07-08 11:59] VITALS: BP 121/70; PULSE 101
== END 2019-07-08 11:50 | disposition home or self-care (01) ==
LOC: MW.ED 09:26
DX: J20.9 Acute bronchitis, unspecified (principal); F17.210 Nicotine dependence, cigarettes, uncomplicated
CPT/HCPCS: 71046; 80053; 81003; 83605; 85025; 87040; 87804; 93005; 94640; 96361; 96374; 96375; 99284; J1885; J2930; J7040; J7030; J7620-GY